=== PATIENT | male | born 1975 | race Hispanic/Latino ===

== ENCOUNTER 2021-12-21 22:31 | Inpatient (IN) | payer BC ==
[~2021-12-21] VITALS: Ht 193 cm; Wt 117.0 kg
[~2021-12-21 22:31] MED LIST: HYOS0.124 SL; ONDA4TAB10 PO
[2021-12-21] MEDS ORDERED: 0.9%NACL 1000ML 1,000 ML IV ONE (23:16)
[2021-12-21 23:19] LABS: BASOPHILS % (AUTO) 0.3 % (0.0-5.0); EOSINOPHILS % (AUTO) 0.2 % (0.0-8.0); LYMPHOCYTES % (AUTO) 9.8 % (21.0-51.0); MEAN CORPUSCULAR HEMOGLOBIN 29.4 pg (27.0-33.0); MEAN CORPUSCULAR VOLUME 86.6 fL (79-99); MONOCYTES % (AUTO) 10.1 % (3.0-13.0); NEUTROPHILS % (AUTO) 79.3 % (40.0-77.0); PLATELET COUNT (AUTO) 244 K/uL (130-400); RED BLOOD CELL COUNT(AUTO) 5.54 MIL/uL (4.50-6.20); RED CELL DISTRIBUTION WIDTH 13.4 % (11.0-15.5); WHITE BLOOD COUNT (AUTO) 6.3 K/uL (4.8-10.8)
[2021-12-21 23:24] LABS: CREATININE 1.5 mg/dL (0.5-1.5); POTASSIUM 3.4 mmol/L (3.5-5.1)
[2021-12-21 23:29] LABS: ALBUMIN 4.1 g/dL (3.5-5.0); BILIRUBIN,TOTAL 1.5 mg/dL (0.2-1.0); TOTAL PROTEIN, SERUM 8.5 g/dL (6.0-8.3)
[2021-12-22] MEDS ORDERED: MORPHINE 4 MG SYG ONE (00:24)
[2021-12-22] MEDS ORDERED: 0.9%NACL 50ML 50 ML IV ONE (00:25)
[2021-12-22] MEDS ORDERED: 0.9%NACL 1000ML 1,000 ML IV ONE ×2 (00:30→03:24)
[2021-12-22] MEDS ORDERED: MORPHINE 4 MG SYG IVP ONE (00:30)
[2021-12-22] MEDS ORDERED: PROMETHAZINE HCL 25 MG/ML 1ML AMPULE IM ONE (00:30)
[2021-12-22] MEDS ORDERED: IOHEXOL 350 MG/ML 100ML INFUS..BTL IV ONE (00:44)
[2021-12-22] MEDS ORDERED: ONDANSETRON 4MG INJ ONE (03:23)
[2021-12-22] MEDS ORDERED: ONDANSETRON 4MG INJ IVP ONE (07:00)
[2021-12-22] MEDS ORDERED: NITROGLYCERIN 0.4 MG SL TAB SL PRN (08:00)
[2021-12-22] MEDS ORDERED: GLUCAGON 1MG KIT 1 MG ML IM PRN (08:00)
[2021-12-22] MEDS ORDERED: DEXTROSE 50%-WATER 50 ML DISP.SYRIN IV PRN (08:00)
[2021-12-22] MEDS ORDERED: MAGNESIUM 2GM PREMIX 50ML 50 ML IV PRN (08:00)
[2021-12-22] MEDS ORDERED: GUAIFENESIN-DM 200/20 MG 10 ML PO PRN (08:00)
[2021-12-22] MEDS ORDERED: MAG/ALUM/SIMETH 30 ML UDCUP PO PRN (08:00)
[2021-12-22] MEDS ORDERED: LACTATED RINGERS 1000ML 1,000 ML IV SCH (08:00)
[2021-12-22] MEDS ORDERED: LACTULOSE 20 GM/30 ML UDCUP PO PRN (08:00)
[2021-12-22] MEDS ORDERED: ZOLPIDEM TARTRATE 5 MG TAB PO PRN (08:00)
[2021-12-22] MEDS ORDERED: POTASSIUM CHLORIDE 20MEQ/100ML 100 ML IV PRN (08:00)
[2021-12-22] MEDS ORDERED: ACETAMINOPHEN 325 MG TAB PO PRN ×2 (08:00)
[2021-12-22] MEDS: ENOXAPARIN SODIUM 30 MG/0.3 ML SQ SCH (09:00)
[2021-12-22] MEDS: INSULIN HUMULIN R 100 UNIT/ML 3ML SQ SCH ×3 (12:00→23:45)
[2021-12-22] MEDS: ONDANSETRON 4MG INJ IV PRN ×2 (13:52→22:47)
[2021-12-22] MEDS: DEXTROSE 5 %-0.45 % NACL 1,000 ML IV SCH (17:13)
[2021-12-22] MEDS: METOCLOPRAMIDE 10 MG/2 ML VIAL IVP SCH (17:14)
[2021-12-22 21:45] VITALS: BP 106/73
[2021-12-22] MEDS ORDERED: HYDR12.54 PO (22:08)
[2021-12-22] MEDS ORDERED: LISI40TA9 PO (22:08)
[2021-12-22 23:32] VITALS: BP 128/90
[2021-12-23 03:55] VITALS: BP 132/86
[2021-12-23 05:14] LABS: BASOPHILS % (AUTO) 0.4 % (0.0-5.0); EOSINOPHILS % (AUTO) 0.6 % (0.0-8.0); HEMATOCRIT 48.1 % (42-54); LYMPHOCYTES % (AUTO) 29.1 % (21.0-51.0); MEAN CORPUSCULAR HEMOGLOBIN 28.7 pg (27.0-33.0); MEAN CORPUSCULAR HGB CONC 33.3 g/dL (32.0-36.0); MEAN CORPUSCULAR VOLUME 86.4 fL (79-99); MONOCYTES % (AUTO) 17.3 % (3.0-13.0); NEUTROPHILS % (AUTO) 52.2 % (40.0-77.0); PLATELET COUNT (AUTO) 279 K/uL (130-400); RED BLOOD CELL COUNT(AUTO) 5.57 MIL/uL (4.50-6.20); RED CELL DISTRIBUTION WIDTH 13.6 % (11.0-15.5); WHITE BLOOD COUNT (AUTO) 4.8 K/uL (4.8-10.8)
[2021-12-23 05:31] LABS: ALBUMIN 3.9 g/dL (3.5-5.0); BILIRUBIN,TOTAL 1.4 mg/dL (0.2-1.0); CREATININE 1.6 mg/dL (0.5-1.5); MAGNESIUM 2.8 mg/dL (1.80-2.40); POTASSIUM 3.3 mmol/L (3.5-5.1); TOTAL PROTEIN, SERUM 8.6 g/dL (6.0-8.3)
[2021-12-23] MEDS: INSULIN HUMULIN R 100 UNIT/ML 3ML SQ SCH ×3 (05:48→18:00)
[2021-12-23] MEDS: POTASSIUM CHLORIDE 10MEQ/100ML 100 ML IV PRN ×2 (05:57→10:32)
[2021-12-23 08:00] VITALS: BP 140/90
[2021-12-23] MEDS: METOCLOPRAMIDE 10 MG/2 ML VIAL IVP SCH ×3 (08:53→18:49)
[2021-12-23] MEDS: ENOXAPARIN SODIUM 30 MG/0.3 ML SQ SCH (08:54)
[2021-12-23 12:00] VITALS: BP 156/94
[2021-12-23] MEDS ORDERED: HYDRALAZINE 20MG/ML VIAL IV PRN (14:30)
[2021-12-23] MEDS ORDERED: LABETALOL 20MG SYG IV PRN (14:30)
[2021-12-23 16:00] VITALS: BP 134/77
[2021-12-23] MEDS: DEXTROSE 5 %-0.45 % NACL 1,000 ML IV SCH (18:49)
[2021-12-23 21:45] VITALS: BP 116/80
[2021-12-24 00:41] VITALS: BP 128/82
[2021-12-24 05:21] LABS: BASOPHILS % (AUTO) 0.8 % (0.0-5.0); EOSINOPHILS % (AUTO) 1.5 % (0.0-8.0); HEMATOCRIT 43.7 % (42-54); LYMPHOCYTES % (AUTO) 32.9 % (21.0-51.0); MEAN CORPUSCULAR HEMOGLOBIN 28.9 pg (27.0-33.0); MEAN CORPUSCULAR HGB CONC 33.2 g/dL (32.0-36.0); MEAN CORPUSCULAR VOLUME 87.2 fL (79-99); MONOCYTES % (AUTO) 14.9 % (3.0-13.0); NEUTROPHILS % (AUTO) 49.5 % (40.0-77.0); PLATELET COUNT (AUTO) 243 K/uL (130-400); RED BLOOD CELL COUNT(AUTO) 5.01 MIL/uL (4.50-6.20); RED CELL DISTRIBUTION WIDTH 13.3 % (11.0-15.5); WHITE BLOOD COUNT (AUTO) 4.7 K/uL (4.8-10.8)
[2021-12-24 05:28] VITALS: BP 120/79
[2021-12-24 05:35] LABS: ALBUMIN 3.4 g/dL (3.5-5.0); BILIRUBIN,TOTAL 1.3 mg/dL (0.2-1.0); CREATININE 1.2 mg/dL (0.5-1.5); POTASSIUM 3.2 mmol/L (3.5-5.1); TOTAL PROTEIN, SERUM 7.5 g/dL (6.0-8.3)
[2021-12-24] MEDS: INSULIN HUMULIN R 100 UNIT/ML 3ML SQ SCH ×5 (06:00→22:52)
[2021-12-24] MEDS: METOCLOPRAMIDE 10 MG/2 ML VIAL IVP SCH ×3 (06:45→17:00)
[2021-12-24 08:00] VITALS: BP 123/82
[2021-12-24] MEDS: HYDROCHLOROTHIAZIDE 25 MG TABLET PO SCH (10:46)
[2021-12-24] MEDS: LISINOPRIL 40 MG TABLET PO SCH (10:47)
[2021-12-24] MEDS: ENOXAPARIN SODIUM 30 MG/0.3 ML SQ SCH (10:47)
[2021-12-24 12:00] VITALS: BP 117/76
[2021-12-24 16:00] VITALS: BP 112/65
[2021-12-24] MEDS ORDERED: POTASSIUM CHLORIDE 20MEQ/100ML 100 ML IV PRN (17:30)
[2021-12-24] MEDS ORDERED: LIDOCAINE HCL-MPF 1% 2ML VIAL IV PRN (17:30)
[2021-12-24] MEDS ORDERED: POTASSIUM CHLORIDE 10% ELIXIR 20 MEQ/15 ML UDCUP PO PRN (17:30)
[2021-12-24] MEDS: KCL 20 MEQ ERTAB PO PRN ×2 (18:19→22:59)
[2021-12-24 20:40] VITALS: BP 120/76
[2021-12-24] MEDS: POLYETHYLENE GLYCOL 3350 17 GM POWD.PACK PO SCH (22:59)
[2021-12-25 01:01] VITALS: BP 117/71
[2021-12-25 01:07] VITALS: BP 117/71
[2021-12-25] MEDS: KCL 20 MEQ ERTAB PO PRN ×2 (02:45→06:22)
[2021-12-25 04:28] VITALS: BP 123/72
[2021-12-25 05:13] LABS: BASOPHILS % (AUTO) 0.8 % (0.0-5.0); EOSINOPHILS % (AUTO) 1.5 % (0.0-8.0); LYMPHOCYTES % (AUTO) 52.1 % (21.0-51.0); MEAN CORPUSCULAR HEMOGLOBIN 29.2 pg (27.0-33.0); MEAN CORPUSCULAR HGB CONC 33.3 g/dL (32.0-36.0); MEAN CORPUSCULAR VOLUME 87.7 fL (79-99); MONOCYTES % (AUTO) 7.7 % (3.0-13.0); NEUTROPHILS % (AUTO) 37.2 % (40.0-77.0); PLATELET COUNT (AUTO) 248 K/uL (130-400); RED BLOOD CELL COUNT(AUTO) 4.79 MIL/uL (4.50-6.20); RED CELL DISTRIBUTION WIDTH 12.9 % (11.0-15.5); WHITE BLOOD COUNT (AUTO) 6.1 K/uL (4.8-10.8)
[2021-12-25 05:26] LABS: ALBUMIN 3.3 g/dL (3.5-5.0); BILIRUBIN,TOTAL 1.4 mg/dL (0.2-1.0); CREATININE 1.1 mg/dL (0.5-1.5); POTASSIUM 3.4 mmol/L (3.5-5.1); TOTAL PROTEIN, SERUM 6.9 g/dL (6.0-8.3)
[2021-12-25] MEDS: INSULIN HUMULIN R 100 UNIT/ML 3ML SQ SCH ×2 (06:00→11:45)
[2021-12-25] MEDS: METOCLOPRAMIDE 10 MG/2 ML VIAL IVP SCH ×2 (06:22→10:59)
[2021-12-25 08:00] VITALS: BP 101/74
[2021-12-25] MEDS: LISINOPRIL 40 MG TABLET PO SCH (10:42)
[2021-12-25] MEDS: HYDROCHLOROTHIAZIDE 25 MG TABLET PO SCH (10:42)
[2021-12-25] MEDS: ENOXAPARIN SODIUM 30 MG/0.3 ML SQ SCH (10:43)
[2021-12-25] MEDS: POLYETHYLENE GLYCOL 3350 17 GM POWD.PACK PO SCH (10:43)
[2021-12-25 12:00] VITALS: BP 122/81
[2021-12-25] MEDS ORDERED: PSYL174P2 PO (13:49)
[2021-12-25] MEDS ORDERED: PSYLLIUM SEED 1 EACH PACKET PO PRN (15:00)
[2021-12-25] MEDS ORDERED: HYOSCYAMINE SULFATE 0.125 MG TAB.SUBL SL PRN (15:00)
[2021-12-25] MEDS ORDERED: ONDANSETRON ODT 4MG TAB PO PRN (15:00)
== END 2021-12-25 15:00 | disposition home or self-care (01) | DRG 390 ==
LOC: EDH 22:31 → OBSVTOIN 12-22 03:37 → EDHIP 12-22 03:37 → 3BH 12-22 21:17
PROVIDERS: ADMIT Internal Medicine Critical Care Medicine; ATTEND Internal Medicine Critical Care Medicine
PROC: 0D9670Z Drainage of Stomach with Drainage Device, Via Natural or Artificial Opening (ICD-10-PCS; principal; 2021-12-22)
DX: K56.609 Unspecified intestinal obstruction, unspecified as to partial versus complete obstruction (principal); Z20.822 Contact with and (suspected) exposure to COVID-19; Z88.0 Allergy status to penicillin; Z90.49 Acquired absence of other specified parts of digestive tract; I10 Essential (primary) hypertension; E86.0 Dehydration; E87.6 Hypokalemia; Z79.899 Other long term (current) drug therapy
CPT/HCPCS: 36415; 74018; 74177; 76705; 80053; 81001; 82948; 83690; 83735; 84484; 85025; 87088; 87635; 93005; 96361; 96374; 96375; G0378; J1650; J1885; J2270; J2405; J2765; J7030; J7042; J7120; Q9967

== ENCOUNTER 2024-07-30 18:51 | Emergency (ER) | payer BC ==
[~2024-07-30] VITALS: Ht 193 cm; Wt 117.9 kg
[~2024-07-30 18:51] MED LIST changes: +HYDR12.54 PO; +LISI40TA9 PO; +ONDA-243 PO; -ONDA4TAB10 PO; +PSYL174P2 PO
[2024-07-30] MEDS ORDERED: ondanSETRON 4MG INJ IVP ONE (20:00)
[2024-07-30] MEDS ORDERED: morPHINE 2 MG SYG IVP ONE (20:00)
[2024-07-30 20:20] LABS: APPEARANCE,URINE CLEAR (CLEAR); BILIRUBIN,URINE NEGATIVE (NEGATIVE); COLOR,URINE YELLOW (YELLOW); GLUCOSE, URINE (UA) NEGATIVE (NEGATIVE); KETONES,URINE NEGATIVE (NEGATIVE); LEUKOCYTE ESTERASE ,URINE NEGATIVE Leu/uL (NEGATIVE); NITRATE,URINE NEGATIVE (NEGATIVE); OCCULT BLOOD,URINE NEGATIVE (NEGATIVE); PH,URINE 5.5 (5.0-8.0); PROTEIN,URINE 30 mg/dL (NEGATIVE); UROBILINOGEN,URINE 0.2 mg/dL (0.2-1.0)
[2024-07-30 20:22] LABS: ADD UA MICROSCOPIC YES
[2024-07-30 20:24] LABS: MUCUS,URINE RARE LPF (None Seen); SQUAMOUS EPITHELIAL CELL,UR RARE /HPF (0-2); WBC,URINE 0-1 /HPF (0-1)
[2024-07-30 20:26] LABS: BASOPHILS # (AUTO) 0.03 K/uL (0.00-0.20); BASOPHILS % (AUTO) 0.3 % (0.0-5.0); EOSINOPHILS # (AUTO) 0.04 K/uL (0.00-0.70); EOSINOPHILS % (AUTO) 0.3 % (0.0-8.0); HEMATOCRIT 46.2 % (42-54); IMMATURE GRANULOCYTE ABSOLUTE 0.06 K/uL (0-1); LYMPHOCYTES # (AUTO) 1.4 K/uL (1.0-4.8); LYMPHOCYTES % (AUTO) 11.7 % (21.0-51.0); MEAN CORPUSCULAR HEMOGLOBIN 29.4 pg (27.0-33.0); MEAN CORPUSCULAR HGB CONC 32.3 g/dL (32.0-36.0); MEAN CORPUSCULAR VOLUME 91.1 fL (79-99); MONOCYTES # (AUTO) 0.7 K/uL (0.1-1.0); MONOCYTES % (AUTO) 5.6 % (3.0-13.0); NEUTROPHILS # (AUTO) 9.7 K/uL (1.8-7.7); NEUTROPHILS % (AUTO) 81.6 % (40.0-77.0); PLATELET COUNT (AUTO) 260 K/uL (130-400); RED BLOOD CELL COUNT(AUTO) 5.07 MIL/uL (4.50-6.20); RED CELL DISTRIBUTION WIDTH 13.2 % (11.0-15.5); WHITE BLOOD COUNT (AUTO) 11.9 K/uL (4.8-10.8)
[2024-07-30 20:33] LABS: POTASSIUM 4.3 mmol/L (3.5-5.1)
[2024-07-30] MEDS ORDERED: PANT40TA PO (20:47)
--- NOTE | 2024-07-30 20:48 | ERN ---
ED Note History of Present Illness Stated Complaint: SEVERE STOMACH PAIN Chief Complaint: Abdominal Pain Time Seen by MD: 19:55 Dictation: This is a 48-year-old male who presented to the emergency room with complaints of severe stomach bloating and discomfort. He stated that this has been going on off and on for months and he was evaluated by GI and was told he had H pylori infection for which he was treated. He has been feeling severe bloating for the past 2 days and after an extremely light breakfast he drank water and walked and had a bowel movement and felt better. He stated that after lunch he had similar symptoms and started experiencing burning pain in the abdomen and he came into the ER for evaluation. No nausea vomitings diarrhea hematemesis or melena. Temperature 98.4 pulse 105 respirations 18 blood pressure 167/108 with a pulse oximetry of 99% on room air His chronic medical problems include hypertension and he had a history of partial SBO many years ago Allergies: Coded Allergies: Penicillins (Unverified Allergy, Unknown, 12/21/21) Home Meds Active Scripts Pantoprazole Sodium (Protonix) 40 Mg Tablet.dr, 1 TAB PO DAILY for 30 Days, #30 TAB 0 Refills Prov:PATRICA MANUEL MD 07/30/24 Hyoscyamine Sulfate (Levsin-Sl) 0.125 Mg Tab.subl, 0.125 MG SL TIDP PRN for Stomach pain, #20 TAB.SL 0 Refills Prov:MARY PIERCE MD 12/21/21 Ondansetron (Ondansetron Odt) 4 Mg Tab.rapdis, 4 MG PO TIDP PRN for VOMITING, #12 TAB 0 Refills Prov:MARY PIERCE MD 12/21/21 Reported Medications Psyllium Husk/Aspartame (Metamucil Powder) 174 Gm Powder, 174 GM PO AM PRN for CONSTIPATION, APPL 12/25/21 Hydrochlorothiazide (Hydrochlorothiazide) 12.5 Mg Tablet, 12.5 MG PO DAILY, TAB 12/22/21 Lisinopril (Lisinopril) 40 Mg Tablet, 40 MG PO DAILY, TAB 12/22/21 Past Medical History Past Medical History: Hypertension Additional Past Medical Hx: HX OF BOWEL OBSTRUCTION (4YRS) Surgical History: Other Family History: Negative Social History: Negative, Other RN Note Reviewed/Agreed w/PFSH: Yes Review of System Dictation Constitutional: Negative for fever,chills, and weight loss Eyes: Negative for injury, pain,redness, and discharge ENT: Negative for injury,pain or swelling Cardiovascular: Negative for chest pain, palpitations, and edema Respiratory: Negative for shortness of breath, cough, and wheezing, Abdomen/GI: Positive for abdominal pain, bloating nausea, denied vomiting, diarrhea, and constipation Back: Negative for injury and pain : Negative for injury, bleeding and discharge MS/Extremity: Negative for injury and deformity Skin: Negative for rash, and discoloration Neuro: Negative for headache, weakness, numbness, tingling, and seizure Psych: Negative for suicide ideation, homicidal ideation, and hallucinations Initial Vital Sign VS Vital Signs Date Time Temp Pulse Resp B/P (MAP) Pulse Ox O2 Delivery O2 Flow Rate FiO2 07/30/24 19:31 98.4 105 18 167/108 98 Room Air Physical Exam Dictation General: awake, alert, NAD Head/Face: Normocephalic, atraumatic Eyes: PERRL, EOMI, vision at baseline ENT: oral cavity clear, TMs clear, no signs of infection Neck: Trachea midline, supple, no nuchal rigidity Cardiovascular: RRR, normal S1/S2, No MRGs, no JVD Respiratory: CTAB, no respiratory distress, No rales or wheezes Abdomen: Soft, non-tender, non-distended, normal bowel sounds, no guarding or rebound. Skin: Warm, dry, normal turgor, no rash MS/Extremity: Pulses equal, no cyanosis, neurovascular intact, FROM Neuro: COAx4, GCS 15, strength 5/5, CN 2-12 intact, normal cerebellar exam, normal gait, Psych: Normal behavior, mood, and affect normal Extremities-trace edema without any palpable cords, Homans sign is negative Results (Laboratory/Radiology) Laboratory/Radiology Laboratory Tests Test 07/30/24 20:00 07/30/24 20:18 Urine Color YELLOW (YELLOW) Urine Appearance CLEAR (CLEAR) Urine pH 5.5 (5.0-8.0) Urine Specific [place] 1.034 (1.001-1.031) Urine Protein 30 mg/dL (NEGATIVE) H Urine Glucose (UA) NEGATIVE mg/dL (NEGATIVE) Urine Ketones NEGATIVE mg/dL (NEGATIVE) Urine Occult Blood NEGATIVE (NEGATIVE) Urine Nitrate NEGATIVE (NEGATIVE) Urine Bilirubin NEGATIVE mg/dL (NEGATIVE) Urine Urobilinogen 0.2 mg/dL (0.2-1.0) Urine Leukocyte Esterase NEGATIVE [place]/uL Urine RBC 2-5 /HPF (0-1) H Urine WBC 0-1 /HPF (0-1) Urine Squamous Epithelial Cells RARE /HPF (0-2) Urine Bacteria None /HPF (None Seen) White Blood Count 11.9 K/uL (4.8-10.8) H Red Blood Count 5.07 MIL/uL (4.50-6.20) Hemoglobin 14.9 g/dL (14.0-18.0) Hematocrit 46.2 % (42-54) Mean Corpuscular Volume 91.1 fL (79-99) Mean Corpuscular Hemoglobin 29.4 pg (27.0-33.0) Mean Corpuscular Hemoglobin Concent 32.3 g/dL (32.0-36.0) Red Cell Distribution Width 13.2 % (11.0-15.5) Platelet Count 260 K/uL (130-400) Mean Platelet Volume 10.3 fL (7.5-10.5) Immature Granulocyte % (Auto) 0.5 % (0-1) Neutrophils (%) (Auto) 81.6 % (40.0-77.0) H Lymphocytes (%) (Auto) 11.7 % (21.0-51.0) L Monocytes (%) (Auto) 5.6 % (3.0-13.0) Eosinophils (%) (Auto) 0.3 % (0.0-8.0) Basophils (%) (Auto) 0.3 % (0.0-5.0) Neutrophils # (Auto) 9.7 K/uL (1.8-7.7) H Lymphocytes # (Auto) 1.4 K/uL (1.0-4.8) Monocytes # (Auto) 0.7 K/uL (0.1-1.0) Eosinophils # (Auto) 0.04 K/uL (0.00-0.70) Basophils # (Auto) 0.03 K/uL (0.00-0.20) Absolute Immature Granulocyte (auto 0.06 K/uL (0-1) Nucleated Red Blood Cells 0.0 % (0.0-0.19) Sodium Level 141 mmol/L (136-145) Potassium Level 4.3 mmol/L (3.5-5.1) Chloride Level 101 mmol/L (101-111) Carbon Dioxide Level 32 mmol/L (21-32) Blood Urea Nitrogen 17 mg/dL (7-18) Creatinine 1.0 mg/dL (0.5-1.3) Glomerular Filtration Rate Calc 92 mL/min (>90) Random Glucose 114 mg/dL (70-105) H Total Calcium 9.7 mg/dL (8.5-10.1) Lipase 28 U/L (16-77) Labs Reviewed?: Yes ED Course ED Course Orders Procedure Category Date Status Time Vital Signs Per CPOE 07/30/24 Transmitted Routine 19:36 Saline Lock Iv CPOE 07/30/24 Transmitted 19:36 Cbc With Differential LAB 07/30/24 Complete 19:36 Lipase LAB 07/30/24 Complete 19:36 Urinalysis Profile LAB 07/30/24 Complete 19:36 Basic Metabolic Panel LAB 07/30/24 Complete 19:36 Ondansetron 4mg Inj PHA 07/30/24 Complete (Zofran 4mg Inj) 20:00 Morphine 2mg Syg PHA 07/30/24 Complete (Morphine 2mg Syg) 20:00 Ondansetron 4mg PHA 07/30/24 Complete Tablet (Zofran 4mg 21:00 Lidocaine Hcl 2% PHA 07/30/24 Complete Viscous (Lidocaine Hcl 21:00 Mag/Alum/Simeth 30ml PHA 07/30/24 Complete (Maalox Plus 30ml) 21:00 Famotidine 20mg Tab PHA 07/30/24 Complete (Pepcid 20mg Tab) 21:00 Dicyclomine Hcl PHA 07/30/24 Complete (Bentyl 10mg/5ml 21:00 Current Medications Medications (Trade) Dose Ordered Sig/Felicia Route PRN Reason Start Time Stop Time Status Last Admin Dose Admin Al Hydroxide/Mg Hydroxide (MAALox PLUS 30ML) 30 ml ONCE ONCE PO 07/30/24 21:00 07/30/24 21:01 DC Dicyclomine HCl (Bentyl 10mg/5ml Syrup) 10 mg ONCE ONCE PO 07/30/24 21:00 07/30/24 21:01 DC Famotidine (Pepcid 20mg Tab) 20 mg ONCE ONCE PO 07/30/24 21:00 07/30/24 21:01 DC Lidocaine HCl (Lidocaine HCl 2% Viscous) 10 ml ONCE ONCE PO 07/30/24 21:00 07/30/24 21:01 DC Morphine Sulfate (morPHINE 2MG SYG) 2 mg ONCE ONCE IVP 07/30/24 20:00 07/30/24 20:01 DC Ondansetron HCl (zoFRAN 4MG TABLET) 4 mg ONCE ONCE PO 07/30/24 21:00 07/30/24 21:01 DC Ondansetron HCl (zoFRAN 4MG INJ) 4 mg ONCE ONCE IVP 07/30/24 20:00 07/30/24 20:01 DC Vital Signs Date Time Temp Pulse Resp B/P (MAP) Pulse Ox O2 Delivery O2 Flow Rate FiO2 07/30/24 19:31 98.4 105 18 167/108 98 Room Air We will perform diagnostic labs, advanced imaging and administer medications according to the patient's complaint. Once the results are available, will review and personally interpreted the labs to rule out any acute life- threatening emergency the trach require immediate intervention and treatment. I will then re-evaluate the patient after treatment and diagnostic exams have return to determine whether the patient requires any further testing, can safely be discharged home or need further admission to hospital for additional treatment and evaluation. CBC showed a white count of 11.9. BNP 7 is within normal limits. Trial of GI cocktail and H2 jesús Medical Decision Making MDM MDM: Differential diagnosis: Dyspepsia, gastritis, biliary colic, indigestion Rationale: Tests considered and ordered secondary to shared decision making include: Previous outside records reviewed: Old ER visits. Risk of complication and/or morbidity or mortality of patient management: None Medications-Per medication reconciliation Need for hospitalization: Patient does not meet criteria for hospitalization. Need for emergency major/minor surgery: No There are no social concerns with this patient. Prescription drug management Prescriptions will include symptomatic care Patient's prior external medical records from other ER visits were reviewed by me as indicated. Prior testing and results from previous visits were reviewed. Prior tests were taken into account with medical decision making and resource utilization, independent historian/historians were used to obtain complete medical history. I independently interpreted the test that were performed, results were reviewed by me and considered findings on radiology if ordered. Medical management and examination interpretation discussions were had by me with other qualified healthcare professionals as indicated for the patient's care. Problem List Problem List: (1) Abdominal pain, acute, epigastric (2) Helicobacter pylori (H. pylori) infection (3) Gastritis (4) Gastroesophageal reflux disease DX & DISP Disposition: Discharge Departure Impression: Primary Impression: Abdominal pain, acute, epigastric Additional Impressions: Gastritis, Gastroesophageal reflux disease, Helicobacter pylori (H. pylori) infection Condition: Stable Scripts Pantoprazole Sodium (Protonix) 40 Mg Tablet.dr 1 TAB PO DAILY for 30 Days, #30 TAB 0 Refills Prov: PATRICA MANUEL MD 07/30/24 Additional Instructions: Patient and the caregiver have been informed of all the diagnostic tests and the imaging conducted during the today's visit to the emergency room and has verbali zed understanding of the results I have personally reviewed and interpreted all diagnostic exams performed here in the ER today as well as the vital signs documented by the nursing staff. The patient is now being discharged to home and should follow up with the primary care physician or the specialist as directed by the ER staff. Follow-up with primary care provider in 1 to 2 days. Take medications as directed here in the emergency room. Okay to continue home medications unless otherwise discussed during your visit in the emergency room today. Return to your nearest emergency room if symptoms worsen or if there is no improvement. Call 911 if you need immediate assistance. Take Tylenol or Motrin [id number] as needed and if no contraindications are present. Increase oral hydration. A wound culture or urine culture was ordered here in the emergency room department please follow-up with primary care provider and advise them to get repeat ports from our facility. If you had any [place] wrap/splints rin t were applied here, please do not remove them until you see your primary care or specialty. Referrals: DANA GUILLEN MD (PCP) PATRICA MANUEL MD Jul 30, 2024 20:48
[2024-07-30] MEDS: ondanSETRON ODT 4MG TAB SL ONE (22:17)
[2024-07-30] MEDS: morPHINE 2 MG SYG IM ONE (22:21)
[2024-07-30] MEDS: LIDOCAINE HCL 2% VISCOUS 15 ML UDCUP PO ONE (22:22)
[2024-07-30] MEDS: ondanSETRON 4MG TABLET PO ONE (22:22)
[2024-07-30] MEDS: MAG/ALUM/SIMETH 30 ML UDCUP PO ONE (22:23)
[2024-07-30] MEDS: FAMOTIDINE 20MG TAB PO ONE (22:23)
[2024-07-30] MEDS: DICYCLOMINE HCL 10 MG/5 ML ML PO ONE (22:23)
[2024-07-30 22:44] VITALS: BP 146/104; PULSE 90; RESP 18; TEMP 98.3; O2SAT 98
== END 2024-07-30 22:47 | disposition home or self-care (01) ==
LOC: EDH 18:51
DX: K21.9 Gastro-esophageal reflux disease without esophagitis (principal); K29.70 Gastritis, unspecified, without bleeding; R10.13 Epigastric pain; I10 Essential (primary) hypertension; Z79.899 Other long term (current) drug therapy; Z88.0 Allergy status to penicillin
CPT/HCPCS: 99284; 80048; 83690; 85025; 81001; 36415; 96372; J2270